=== PATIENT | female | born 2000 | race Two or more races ===

== ENCOUNTER 2018-06-24 01:14 | Emergency (ER) | payer MEDICAID, OTHER ==
[~2018-06-24] VITALS: Ht 157.5 cm; Wt 77.1 kg
[2018-06-24 01:32] VITALS: BP 133/80
== END 2018-06-24 04:08 | disposition home or self-care (01) ==
LOC: ER 01:25
DX: S43.402A Unspecified sprain of left shoulder joint, initial encounter (principal); Z32.02 Encounter for pregnancy test, result negative; X50.1XXA Overexertion from prolonged static or awkward postures, initial encounter; Y93.89 Activity, other specified; Y92.89 Other specified places as the place of occurrence of the external cause; Y99.8 Other external cause status
CPT/HCPCS: 73030; 81025